=== PATIENT | female | born 1980 | race Caucasian/White ===

== ENCOUNTER 2018-04-12 12:43 | Emergency (ER) | payer MEDICAID ==
[~2018-04-12] VITALS: Ht 160 cm; Wt 60.0 kg
[2018-04-12] MEDS ORDERED: HYDROCODONE/ACETAMINOPHEN 5/325MG TABLET PO STA (14:31)
[2018-04-12 18:16] VITALS: BP 131/61
== END 2018-04-12 18:20 | disposition home or self-care (01) ==
LOC: ER 12:43
DX: M54.2 Cervicalgia (principal); S50.01XA Contusion of right elbow, initial encounter; S20.211A Contusion of right front wall of thorax, initial encounter; R51 Headache; Y92.89 Other specified places as the place of occurrence of the external cause; W01.118A Fall on same level from slipping, tripping and stumbling with subsequent striking against other sharp object, initial encounter; Y93.89 Activity, other specified; Y99.0 Civilian activity done for income or pay; J32.0 Chronic maxillary sinusitis
CPT/HCPCS: 70450; 71100; 72070; 72100; 72125; 73080; 81025; 99284